=== PATIENT | male | born 1970 | race Caucasian/White ===

== ENCOUNTER 2020-10-29 14:29 | Outpatient (CLI) | payer OTHER, SELFPAY ==
--- NOTE | ~2020-10-29 | XR_ITS ---
EXAMINATION: XR chest 2V DATE: 10/29/2020 14:55 INDICATION: Positive PPD test TECHNIQUE: PA and lateral views of the chest were obtained. COMPARISON: None FINDINGS: The lungs are clear with no focal airspace opacities, pulmonary edema, pleural effusion or pneumothor ax. The cardiomediastinal silhouette is normal. Large densely calcified right paratracheal lymph node s consistent with old granulomatous disease. Bones and soft tissues are unremarkable. IMPRESSION: 1. No acute cardiopulmonary disease. 2. Large calcified right paratracheal lymph nodes consistent with old granulomatous disease. Reviewed, dictated and finalized at location A. IMPRESSION: 1. No acute cardiopulmonary disease. 2. Large calcified right paratracheal lymph nodes consistent with old granuloma tous disease.
== END 2020-10-29 14:30 | disposition home or self-care (01) ==
DX: R76.11 Nonspecific reaction to tuberculin skin test without active tuberculosis (principal)
CPT/HCPCS: 71046